=== PATIENT | male | born 1975 | race Caucasian/White ===

== ENCOUNTER 2016-07-19 12:18 | Emergency (ER) | payer BC ==
[2016-07-19 14:27] VITALS: BP 125/84
--- NOTE | 2016-07-19 14:41 | UC ---
Respiratory Complaint HPI - HPI Summary HPI Summary: patient has had cough and sinus congestion for the past 2 weeks, has developed a chest cold that gets worse at night and has developed left lower rib pain. - History of Current Complaint Chief Complaint: UCRespiratory Stated Complaint: CHEST CONGESTION Time Seen by Provider: 07/19/16 14:32 Hx Obtained From: Patient Onset/Duration: Gradual Onset, Lasting Weeks Timing: Constant Severity Initially: Moderate Severity Currently: Moderate Pain Intensity: 6 Pain Scale Used: 0-10 Numeric Character: Cough: Productive Aggravating Factors: Deep Breaths, Recumbent Position Alleviating Factors: Nothing Associated Signs And Symptoms: Positive: Dyspnea, URI, Nasal Congestion, Sinus Discomfort - Risk Factors Pulmonary Embolism Risk Factors: Negative Cardiac Risk Factors: Negative Pseudomonas Risk Factors: Negative Tuberculosis Risk Factors: Negative - Allergies/Home Medications Allergies/Adverse Reactions: Allergies Allergy/AdvReac Type Severity Reaction Status Date / Time No Known Allergies Allergy Verified 04/16/12 08:33 Home Medications: Home Medications Rivaroxaban TAB(*) [Xarelto 20 mg] 20 mg PO DAILY 07/19/16 [History Confirmed ] PMH/Surg Hx/FS Hx/Imm Hx Previously Healthy: Yes Endocrine History Of: Denies: Diabetes, Thyroid Disease, Hyperthyroidism, Hypothyroidism Cardiovascular History Of: Denies: Cardiac Disorders, Hypertension, Pacemaker/ICD Respiratory History Of: Denies: COPD, Asthma GI/ History Of: Denies: Gastroesophageal Reflux, Renal Disease Neurological History Of: Denies: TIA, CVA, Dementia, Seizures, Migraine Psychological History Of: Denies: Anxiety, Depression, Bipolar Disorder, Schizophrenia Other History Of: Anticoagulant Therapy - Surgical History Surgical History: Yes Surgery Procedure, Year, and Place: SHARON IN SIDE OF THE HEAD. FACE STITCHES. HAND STITCHES. L KNEE STITCHES - Family History Known Family History: Negative: Cardiac Disease, Hypertension - Social History Alcohol Use: Occasionally Substance Use Type: None Smoking Status (MU): Never Smoked Tobacco - Immunization History Most Recent Tetanus Shot: 2006 Review of Systems Constitutional: Fatigue Skin: Negative Eyes: Negative ENT: Negative Respiratory: Shortness Of Breath, Cough Cardiovascular: Negative Gastrointestinal: Negative Genitourinary: Negative Motor: Negative Neurovascular: Negative Musculoskeletal: Negative Neurological: Negative Psychological: Negative All Other Systems Reviewed And Are Negative: Yes Physical Exam Triage Information Reviewed: Yes Appearance: No Pain Distress, Well-Nourished, Ill-Appearing Vital Signs: Initial Vital Signs Temp 97.7 F 07/19/16 14:23 Pulse 58 07/19/16 14:23 Resp 18 07/19/16 14:23 BP 125/84 07/19/16 14:23 Pulse Ox 99 07/19/16 14:23 Vital Signs Reviewed: Yes Eye Exam: Normal Eyes: Positive: Conjunctiva Clear ENT: Positive: Normal ENT inspection, Pharynx normal, TMs normal Neck exam: Normal Neck: Positive: Supple, Nontender, No Lymphadenopathy Respiratory Exam: Normal Respiratory: Positive: Chest non-tender, No respiratory distress, No accessory muscle use, Decreased breath sounds, Wheezing, Inspiration Cardiovascular Exam: Normal Cardiovascular: Positive: RRR, No Murmur, Pulses Normal Abdominal Exam: Normal Abdomen Description: Positive: Nontender, No Organomegaly, Soft Bowel Sounds: Positive: Present Musculoskeletal Exam: Normal Musculoskeletal: Positive: Strength Intact, ROM Intact, No Edema Neurological Exam: Normal Neurological: Positive: Alert, Muscle Tone Normal Psychological Exam: Normal Skin Exam: Normal UC Diagnostic Evaluation - Laboratory O2 Sat by Pulse Oximetry: 99 Respiratory Course/Dx - Course Course Of Treatment: hx obtained, exam performed, xray obtained neg for pneumonia. treated for viral URI. medication prescribed. - Differential Dx/Diagnosis Differential Diagnosis/HQI/PQRI: Laryngitis, Lower Resp Infection, Sinusitis Provider Diagnoses: URI. bronchospasm Discharge - Discharge Plan Condition: Stable Disposition: HOME Prescriptions: predniSONE TAB* [Deltasone TAB*] 40 mg PO DAILY #10 tab Patient Education Materials: Bronchospasm (ED)
--- NOTE | 2016-07-19 15:03 | RAD ---
HISTORY: Shortness of breath, cough COMPARISONS: September 24, 2015 VIEWS: 2: Frontal dual-energy and lateral views of the chest. FINDINGS: CARDIOMEDIASTINAL SILHOUETTE: The cardiomediastinal silhouette is normal. NATY: The naty are normal. PLEURA: The costophrenic angles are sharp. No pleural abnormalities are noted. LUNG PARENCHYMA: The lungs are clear. ABDOMEN: The upper abdomen is clear. There is no subphrenic gas. BONES AND SOFT TISSUES: No bone or soft tissue abnormalities are noted. OTHER: None. IMPRESSION: NO ACTIVE CARDIOPULMONARY DISEASE.
[2016-07-19] MEDS ORDERED: guaiFENesin/CODIEN 100MG-10MG* 5 ML UDC PO ONE (15:18)
== END 2016-07-19 15:29 | disposition home or self-care (01) ==
LOC: UCEAST 12:18
DX: J06.9 Acute upper respiratory infection, unspecified (principal); J98.01 Acute bronchospasm
CPT/HCPCS: 71020; 99212; A9270-GY; G0463

== ENCOUNTER 2016-11-29 21:12 | Emergency (ER) | payer BC ==
[2016-11-29 21:39] VITALS: BP 136/91
--- NOTE | 2016-11-29 23:01 | ED ---
Laceration/Wound HPI - HPI Summary HPI Summary: 41 male presents with complaints of laceration to upper left lip after being hit with hockey puck while playing in his game just prior to arrival. Patient states the bleeding has became controlled. He is on xarelto. Denies difficulty breathing or swallowing. No other injuries. No LOC, denies head trauma. Tetanus is up to date as patient has had many stitches. Denies vision changes and head ache. Denies PMHx and meds prior to arrival. - History of Current Complaint Stated Complaint: LIP LAC Time Seen by Provider: 11/29/16 21:57 Hx Obtained From: Patient Mechanism of Injury: Sharp/Blunt Trauma - hockey puck Onset/Duration: Sudden Onset Alleviating: Compression Onset Severity: Mild Current Severity: None Pain Intensity: 0 Pain Scale Used: 0-10 Numeric Associated Signs & Symptoms: Redness - Allergy/Home Medications Allergies/Adverse Reactions: Allergies Allergy/AdvReac Type Severity Reaction Status Date / Time No Known Allergies Allergy Verified 04/16/12 08:33 PMH/Surg Hx/FS Hx/Imm Hx Endocrine/Hematology History: Reports: Hx Anticoagulant Therapy Denies: Hx Diabetes, Hx Thyroid Disease Cardiovascular History: Denies: Hx Hypertension, Hx Pacemaker/ICD, Hx Peripheral Vascular Disease Comment Only: Other Cardiovascular Problems/Disorders - hit in calf 1 wk ago- dvt, r/o pe Respiratory History: Reports: Other Respiratory Problems/Disorders - CHRONIC PE Denies: Hx Asthma, Hx Chronic Obstructive Pulmonary Disease (COPD) History: Denies: Hx Renal Disease Musculoskeletal History: Denies: Hx Arthritis, Hx Osteoporosis Sensory History: Denies: Hx Cataracts, Hx Contacts or Glasses, Hx Glaucoma Opthamlomology History: Denies: Hx Cataracts, Hx Contacts or Glasses, Hx Glaucoma Neurological History: Denies: Hx Dementia, Hx Developmental Delay, Hx Headaches, Hx Migraine, Hx Seizures, Hx Spinal Cord Injury, Hx Transient Ischemic Attacks (TIA) Psychiatric History: Denies: Hx Anxiety, Hx Attention Deficit Hyperactivity Disorder, Hx Autism, Hx Eating Disorder, Hx Oppositional Meagher Disorder, Hx Depression, Hx Panic Disorder, Hx Post Traumatic Stress Disorder, Hx Inpatient Treatment, Hx Community Mental Health Tx, Hx Schizophrenia, Hx Bipolar Disorder, Hx Suicide Attempt, Hx Substance Abuse, Other Psychiatric Issues/Disorders - Cancer History Hx Chemotherapy: No Hx Radiation Therapy: No - Surgical History Surgery Procedure, Year, and Place: SHARON IN SIDE OF THE HEAD. FACE STITCHES. HAND STITCHES. L KNEE STITCHES Hx Anesthesia Reactions: No - Immunization History Date of Influenza Vaccine: [facility] Infectious Disease History: Denies: Hx Hepatitis, Hx Human Immunodeficiency Virus (HIV), Hx Shingles, Hx Tuberculosis, Traveled Outside the [place] in Last 30 Days - Family History Known Family History: Negative: Cardiac Disease, Hypertension - Social History Alcohol Use: Occasionally Substance Use Type: Reports: None Hx Tobacco Use: No Smoking Status (MU): Never Smoked Tobacco Review of Systems Constitutional: Negative Eyes: Negative ENT: Negative Cardiovascular: Negative Respiratory: Negative Gastrointestinal: Negative Positive: Other - lip laceration Neurological: Negative All Other Systems Reviewed And Are Negative: Yes Physical Exam Triage Information Reviewed: Yes Vital Signs On Initial Exam: Initial Vitals Temp Pulse Resp BP Pulse Ox 99.1 F 71 18 136/91 98 11/29/16 21:37 11/29/16 21:37 11/29/16 21:37 11/29/16 21:37 11/29/16 21:37 Vital Signs Reviewed: Yes Appearance: Positive: Well-Appearing, No Pain Distress, Well-Nourished Skin: Positive: Warm, Other - small 1cm linear laceration to left side uppr lip , including ping border, did not puncture through to inside of lip. teeth intact. no active bleeding, ecchymosis and edema noted at area of laceration. Head/Face: Positive: Normal Head/Face Inspection - besides lip laceration, no racoon eyes, battles signs, facial bone tenderness.. Negative: Temporal Artery Tenderness, TMJ Tenderness, Scalp Eyes: Positive: Normal, EOMI, KARYN, Conjunctiva Clear ENT: Positive: Normal ENT inspection, Hearing grossly normal, Pharynx normal, TMs normal Dental: Positive: Other - teeth intact. Negative: Percussion Tenderness @, Dental Fracture @, Cervical Lymphadenopathy, Bleeding Neck: Positive: Supple, Nontender, No Lymphadenopathy Respiratory/Lung Sounds: Positive: Breath Sounds Present. Negative: Rales, Rhonchi, Wheezes Cardiovascular: Positive: Normal, RRR Musculoskeletal: Positive: Normal, Strength/ROM Intact Neurological: Positive: Normal, Sensory/Motor Intact, Alert, Oriented to Person Place, Time, CN Intact II-III Procedures - Laceration/Wound Repair 1 Location: mouth - upper left lip, corner Description: Linear Anesthesia: Local, 1.0%, Lido Length, Depth and Shape: 1cm, linear, through epidermis without puncture through inside of lip Betadine Prep?: No Irrigated w/ Saline (ccs): 100 Laceration/Wound Explored: clean, no foreign body removed Closure: Single Layer Suture Type: Prolene - 6-0 Number of Sutures: 3 Layer Closure?: No Diagnostics - Vital Signs Vital Signs Temp Pulse Resp BP Pulse Ox 11/29/16 21:37 99.1 F 71 18 136/91 98 - Laboratory Lab Statement: Any lab studies that have been ordered have been reviewed, and results considered in the medical decision making process. Laceration Repair Course/Dx - Course Course Of Treatment: 3 ismple interrupted sutures placed in lip laceration, ping border lined up as precise as possible. without complication, using sterile procedure. remove in 5-7 days. no concern for fracture, no imaging necessary. aware of worsening signs and symptoms, such as infection. encouraged to keep area clean, do not shave, salt water swishes and neosporin. tetanus already up to date. follow up with pcp. - Differential Dx Differental Diagnoses: Abrasion, Avulsion, Foreign Body, Laceration, Suture Removal, Tendon Laceration, Other - Clinical Impression Provider Diagnoses: Laceration of vermilion border of upper lip without complication Discharge - Discharge Plan Condition: Stable Disposition: HOME Patient Education Materials: Laceration (ED), Care For Your Stitches (ED) Referrals: Roderick Reese MD [Primary Care Provider] - Additional Instructions: Take Tylenol for pain and discomfort. Ice lip multiple times daily to help with swelling. If your laceration becomes infected please seek medical attention. Have stitches removed in 5-7 days. Neosporin on area in 48 hours. Take caution with certain foods, stretching of lip and mouthwash. Recommend swishing with salt water multiple times daily. Follow up with PCP.
== END 2016-11-29 23:18 | disposition home or self-care (01) ==
LOC: ED 21:12
DX: S01.511A Laceration without foreign body of lip, initial encounter (principal); W21.220A Struck by ice hockey puck, initial encounter; Y93.22 Activity, ice hockey; Y92.9 Unspecified place or not applicable; Y99.9 Unspecified external cause status
CPT/HCPCS: 12011; 99281